=== PATIENT | female | born 1960 | race African-American/Black ===

== ENCOUNTER 2020-10-05 12:20 | Emergency (ER) | payer OTHER ==
[2020-10-05 12:28] VITALS: BP 111/72; PULSE 99; TEMP 97; BMI 37.2
[2020-10-05] MEDS ORDERED: SULFAMETHOXAZOLE/TRIMETHOPRIM 800MG/160MG D.S. TABLET PO ONE (13:14)
[2020-10-05] MEDS ORDERED: SULFAMETHOXAZOLE/TRIMETHOPRIM 800MG/160MG D.S. TABLET ONE (13:19)
== END 2020-10-05 13:21 | disposition home or self-care (01) ==
LOC: JERFT 12:20 → JER 12:20 → JERFT 13:21
PROC: 0X940ZX Drainage of Right Axilla, Open Approach, Diagnostic (ICD-10-PCS; principal; 2020-10-05)
DX: L72.3 Sebaceous cyst (principal)
CPT/HCPCS: 10060; 87070; 87205; 99284-25

== ENCOUNTER 2022-11-07 15:31 | Emergency (ER) | payer OTHER ==
[2022-11-07 16:02] VITALS: BP 110/58; PULSE 88; RESP 18; TEMP 98; BMI 32.8
[2022-11-07 17:25] LABS: BASO % 0.7 % (0-2.0); EOS % 1.1 % (0-4.5); HEMATOCRIT 37.1 % (32.4-45.2); HEMOGLOBIN 12.4 GM/dL (10.7-15.3); LYMPH % 25.6 % (8-40); MCH 29.7 pg (25.7-33.7); MCHC 33.3 g/dl (32.0-36.0); MEAN CELL VOLUME 89.2 fl (80-96); MEAN PLT VOLUME 8.8 fl (7.5-11.1); MONO % 7.9 % (3.8-10.2); NEUT % 64.7 % (42.8-82.8); PLATELET COUNT 272 10^3/uL (134-434); RBC 4.16 M/mm3 (3.60-5.2); RDW 14.7 % (11.6-15.6)
[2022-11-07 17:29] LABS: PROTHROMBIN TIME (PATIENT) 47.4 SEC (9.7-13.0)
[2022-11-07 17:42] LABS: ALBUMIN 3.6 g/dl (3.4-5.0); BLOOD UREA NITROGEN 24.5 mg/dL (7-18)
[2022-11-07 17:45] LABS: CREATININE 1.2 mg/dL (0.55-1.3)
[2022-11-07 17:47] LABS: BILIRUBIN,TOTAL 0.4 mg/dL (0.2-1); TOT PROT 7.5 g/dl (6.4-8.2)
[2022-11-07 18:00] LABS: INR 4.14 (0.83-1.09)
== END 2022-11-07 20:34 | disposition home or self-care (01) ==
LOC: JER 15:31
DX: S40.021A Contusion of right upper arm, initial encounter (principal); Y99.9 Unspecified external cause status
CPT/HCPCS: 36415; 76882-TC-RT-FY; 80053; 85025; 85610; 86850; 86900; 86901; 93005; 93010; 93971; 99285-25

== ENCOUNTER 2023-07-26 12:27 | Emergency (ER) | payer OTHER ==
[2023-07-26 12:35] VITALS: BMI 30.4
[2023-07-26] MEDS ORDERED: methylPREDNISolone NA SUCC 125 MG/2 ML VIAL IVPB ONE (13:25)
[2023-07-26 13:48] VITALS: BP 155/67; PULSE 84; RESP 16; TEMP 98
[2023-07-26] MEDS ORDERED: ALBUTEROL SO4 2.5/IPRATROPIUM 0.5 INH SOL 3 ML VIAL.NEB. NEB ONE (14:04)
[2023-07-26] MEDS ORDERED: methylPREDNISolone NA SUCC 125 MG/2 ML VIAL ONE (14:05)
[2023-07-26] MEDS: ALBUTEROL SO4 2.5/IPRATROPIUM 0.5 INH SOL 3 ML VIAL.NEB. NEB SCH ×4 (14:17→15:03)
[2023-07-26 14:27] LABS: VENOUS O2 SATURATION 86.2 % (70-80); VENOUS PCO2 42.8 mmHg (38-52); VENOUS PH 7.387 (7.310-7.410)
[2023-07-26 14:36] LABS: BASO % 0.2 % (0-2.0); EOS % 1.8 % (0-4.5); HEMATOCRIT 31.7 % (32.4-45.2); MCH 27.4 pg (25.7-33.7); MCHC 31.5 g/dl (32.0-36.0); MEAN CELL VOLUME 87.1 fl (80-96); MEAN PLT VOLUME 8.7 fl (7.5-11.1); PLATELET COUNT 262 10^3/uL (134-434); RBC 3.64 M/mm3 (3.60-5.2); RDW 16.1 % (11.6-15.6); WHITE BLOOD COUNT 10.8 K/mm3 (4.0-10.0)
[2023-07-26 14:42] LABS: INR 1.52 (0.83-1.09); PROTHROMBIN TIME (PATIENT) 17.6 SEC (9.7-13.0)
[2023-07-26 14:44] LABS: ACTIVATED PTT 32.9 SECONDS (25.2-36.5)
[2023-07-26 14:58] LABS: POTASSIUM 3.7 mmol/L (3.5-5.1)
[2023-07-26 15:00] LABS: CALCIUM 8.7 mg/dL (8.5-10.1)
[2023-07-26 15:01] LABS: ALBUMIN 3.3 g/dl (3.4-5.0); BLOOD UREA NITROGEN 6.7 mg/dL (7-18)
[2023-07-26 15:04] LABS: CREATININE 0.9 mg/dL (0.55-1.3)
[2023-07-26 15:05] LABS: BILIRUBIN,TOTAL 0.4 mg/dL (0.2-1); TOT PROT 7.2 g/dl (6.4-8.2)
== END 2023-07-26 15:56 | disposition home or self-care (01) ==
LOC: JER 12:27
PROC: 3E033GC Introduction of Other Therapeutic Substance into Peripheral Vein, Percutaneous Approach (ICD-10-PCS; principal; 2023-07-26)
PROC: 3E0F7GC Introduction of Other Therapeutic Substance into Respiratory Tract, Via Natural or Artificial Opening (ICD-10-PCS; 2023-07-26)
DX: R06.02 Shortness of breath (principal); R09.81 Nasal congestion; R05.9 Cough, unspecified; J45.901 Unspecified asthma with (acute) exacerbation; Z20.822 Contact with and (suspected) exposure to COVID-19
CPT/HCPCS: 0241U-QW; 36415; 71046-TC-FY; 80053; 82803; 85025; 85610; 85730; 93005; 93010; 99285-25

== ENCOUNTER 2024-05-04 19:47 | Emergency (ER) | payer OTHER ==
[2024-05-04 19:59] VITALS: RESP 22; TEMP 98.4; BMI 26.5
[2024-05-04] MEDS ORDERED: methylPREDNISolone NA SUCC 125 MG/2 ML VIAL ONE (20:24)
[2024-05-04] MEDS: methylPREDNISolone NA SUCC 125 MG/2 ML VIAL IM ONE (20:47)
[2024-05-04 20:48] LABS: VENOUS BASE EXCESS 0.9 mmol/L (-2-2); VENOUS O2 SATURATION 66.2 % (70-80); VENOUS PCO2 51.6 mmHg (38-52); VENOUS PH 7.34 (7.310-7.410)
[2024-05-04] MEDS: ALBUTEROL SO4 2.5/IPRATROPIUM 0.5 INH SOL 3 ML VIAL.NEB. NEB SCH (20:48)
[2024-05-04 20:53] LABS: BASO % 0.6 % (0-2.0); EOS % 2.2 % (0-4.5); HEMATOCRIT 30.5 % (32.4-45.2); HEMOGLOBIN 9.3 GM/dL (10.7-15.3); LYMPH % 25.4 % (8-40); MCHC 30.6 g/dl (32.0-36.0); MEAN CELL VOLUME 81.8 fl (80-96); MEAN PLT VOLUME 8.4 fl (7.5-11.1); MONO % 10.4 % (3.8-10.2); NEUT % 61.4 % (42.8-82.8); PLATELET COUNT 269 10^3/uL (134-434); RBC 3.73 M/mm3 (3.60-5.2); WHITE BLOOD COUNT 8.4 K/mm3 (4.0-10.0)
[2024-05-04] MEDS ORDERED: MAGNESIUM SULFATE IN WATER 2 GM/50 ML IVPB IVPB ONE (20:55)
[2024-05-04] MEDS ORDERED: ALBUTEROL SO4 2.5/IPRATROPIUM 0.5 INH SOL 3 ML VIAL.NEB. NEB ONE ×2 (20:55→23:22)
[2024-05-04] MEDS: MAGNESIUM SULF 50% (8.12 MEQ/2 ML-1 GM VIAL) IVPB ONE (21:06)
[2024-05-04 21:21] LABS: ALBUMIN 3.4 g/dl (3.4-5.0); CALCIUM 8.9 mg/dL (8.5-10.1)
[2024-05-04 21:25] LABS: CREATININE 1.1 mg/dL (0.55-1.3)
[2024-05-04 21:26] LABS: BILIRUBIN,TOTAL 0.3 mg/dL (0.2-1); TOT PROT 6.9 g/dl (6.4-8.2)
[2024-05-04 22:25] LABS: HIV INTERPRETATION NEGATIVE (NEGATIVE)
[2024-05-04] MEDS: ALBUTEROL SO4 2.5/IPRATROPIUM 0.5 INH SOL 3 ML VIAL.NEB. NEB ONE (23:25)
[2024-05-05 00:43] VITALS: BP 145/75; PULSE 81
== END 2024-05-05 00:41 | disposition home or self-care (01) ==
LOC: JER 19:47
PROC: 3E0F7GC Introduction of Other Therapeutic Substance into Respiratory Tract, Via Natural or Artificial Opening (ICD-10-PCS; principal; 2024-05-04)
PROC: 3E0F7GC Introduction of Other Therapeutic Substance into Respiratory Tract, Via Natural or Artificial Opening (ICD-10-PCS; 2024-05-04)
PROC: 3E033GC Introduction of Other Therapeutic Substance into Peripheral Vein, Percutaneous Approach (ICD-10-PCS; 2024-05-04)
PROC: 3E023GC Introduction of Other Therapeutic Substance into Muscle, Percutaneous Approach (ICD-10-PCS; 2024-05-04)
DX: R06.02 Shortness of breath (principal); J44.9 Chronic obstructive pulmonary disease, unspecified; J45.901 Unspecified asthma with (acute) exacerbation; F17.210 Nicotine dependence, cigarettes, uncomplicated; Z20.822 Contact with and (suspected) exposure to COVID-19
CPT/HCPCS: 0241U-QW; 36415; 71045-TC-FY; 80053; 82803; 84484; 85025; 86803; 87389; 94640; 96372; 96374; 99284-25

== ENCOUNTER 2024-06-05 19:56 | Emergency (ER) | payer OTHER ==
[2024-06-05 20:08] VITALS: TEMP 98.4; BMI 25.8
[2024-06-05] MEDS ORDERED: MAGNESIUM SULFATE IN WATER 2 GM/50 ML IVPB IVPB ONE (20:44)
[2024-06-05] MEDS ORDERED: ALBUTEROL SO4 2.5/IPRATROPIUM 0.5 INH SOL 3 ML VIAL.NEB. NEB ONE (20:44)
[2024-06-05] MEDS ORDERED: methylPREDNISolone NA SUCC 125 MG/2 ML VIAL ONE (20:44)
[2024-06-05] MEDS: methylPREDNISolone NA SUCC 125 MG/2 ML VIAL IVPB ONE (21:04)
[2024-06-05] MEDS: ALBUTEROL SO4 2.5/IPRATROPIUM 0.5 INH SOL 3 ML VIAL.NEB. NEB ONE (21:04)
[2024-06-05] MEDS: MAGNESIUM SULF 50% (8.12 MEQ/2 ML-1 GM VIAL) IVPB ONE (21:04)
[2024-06-05 21:29] LABS: BASO % 0.8 % (0-2.0); HEMATOCRIT 32.9 % (32.4-45.2); LYMPH % 22.2 % (8-40); MCH 24.3 pg (25.7-33.7); MCHC 30.3 g/dl (32.0-36.0); MEAN CELL VOLUME 80.2 fl (80-96); MEAN PLT VOLUME 8.6 fl (7.5-11.1); MONO % 10.7 % (3.8-10.2); NEUT % 65.3 % (42.8-82.8); PLATELET COUNT 287 10^3/uL (134-434); RDW 17.5 % (11.6-15.6); WHITE BLOOD COUNT 8.6 K/mm3 (4.0-10.0)
[2024-06-05 21:35] LABS: POTASSIUM 4.7 mmol/L (3.5-5.1)
[2024-06-05 21:36] LABS: CALCIUM 9.1 mg/dL (8.5-10.1)
[2024-06-05 21:37] LABS: ALBUMIN 3.4 g/dl (3.4-5.0); BLOOD UREA NITROGEN 13.2 mg/dL (7-18)
[2024-06-05 21:40] LABS: CREATININE 0.9 mg/dL (0.55-1.3)
[2024-06-05 21:42] LABS: BILIRUBIN,TOTAL 0.3 mg/dL (0.2-1); TOT PROT 7.4 g/dl (6.4-8.2)
[2024-06-05 23:22] VITALS: BP 128/76; PULSE 102; RESP 18
== END 2024-06-05 23:24 | disposition home or self-care (01) ==
LOC: JER 19:56
PROC: 3E033GC Introduction of Other Therapeutic Substance into Peripheral Vein, Percutaneous Approach (ICD-10-PCS; principal; 2024-06-05)
PROC: 3E033GC Introduction of Other Therapeutic Substance into Peripheral Vein, Percutaneous Approach (ICD-10-PCS; 2024-06-05)
PROC: 3E0F7GC Introduction of Other Therapeutic Substance into Respiratory Tract, Via Natural or Artificial Opening (ICD-10-PCS; 2024-06-05)
DX: J45.901 Unspecified asthma with (acute) exacerbation (principal); R06.02 Shortness of breath; R05.9 Cough, unspecified
CPT/HCPCS: 36415; 71045-TC-FY; 80053; 85025; 93005; 93010; 99285-25

== ENCOUNTER 2024-06-10 19:37 | Inpatient (IN) | payer OTHER ==
[2024-06-10] MEDS: ALBUTEROL SO4 2.5/IPRATROPIUM 0.5 INH SOL 3 ML VIAL.NEB. NEB SCH (21:00)
[2024-06-10] MEDS ORDERED: ALBUTEROL SO4 2.5/IPRATROPIUM 0.5 INH SOL 3 ML VIAL.NEB. NEB ONE ×2 (21:06→22:01)
[2024-06-10] MEDS ORDERED: methylPREDNISolone NA SUCC 125 MG/2 ML VIAL ONE (21:32)
[2024-06-10 21:33] LABS: VENOUS O2 SATURATION 90.2 % (70-80); VENOUS PH 7.355 (7.310-7.410)
[2024-06-10 21:55] LABS: INR 1.2 (0.83-1.09); PROTHROMBIN TIME (PATIENT) 13.5 SEC (9.7-13.0)
[2024-06-10 21:57] LABS: BASO % 0.4 % (0-2.0); EOS % 0.2 % (0-4.5); HEMOGLOBIN 9.6 GM/dL (10.7-15.3); LYMPH % 48.2 % (8-40); MCH 23.8 pg (25.7-33.7); MCHC 29.7 g/dl (32.0-36.0); MEAN CELL VOLUME 80.1 fl (80-96); MEAN PLT VOLUME 8.8 fl (7.5-11.1); MONO % 3.3 % (3.8-10.2); NEUT % 47.9 % (42.8-82.8); PLATELET COUNT 328 10^3/uL (134-434); RBC 4.02 M/mm3 (3.60-5.2); RDW 17.2 % (11.6-15.6); WHITE BLOOD COUNT 12.6 K/mm3 (4.0-10.0)
[2024-06-10] MEDS: methylPREDNISolone NA SUCC 125 MG/2 ML VIAL IVPB ONE (21:57)
[2024-06-10 21:58] LABS: ACTIVATED PTT 28.5 SECONDS (25.2-36.5)
[2024-06-10 22:23] LABS: CALCIUM 9.2 mg/dL (8.5-10.1)
[2024-06-10 22:24] LABS: ALBUMIN 3.5 g/dl (3.4-5.0); BLOOD UREA NITROGEN 20.3 mg/dL (7-18)
[2024-06-10 22:29] LABS: BILIRUBIN,TOTAL 0.2 mg/dL (0.2-1); TOT PROT 7.1 g/dl (6.4-8.2)
[2024-06-10 22:31] LABS: ANISOCYTOSIS 2+; MACROCYTOSIS 0; TARGET CELLS 2+; TEAR DROP CELLS 1+
[2024-06-10] MEDS: ALBUTEROL SO4 0.083% IH SOL 2.5 MG/3 ML VIAL.NEB. NEB SCH (23:45)
[2024-06-10] MEDS ORDERED: MAGNESIUM SULFATE IN WATER 2 GM/50 ML IVPB IVPB ONE (23:48)
[2024-06-11] MEDS: MAGNESIUM SULFATE IN WATER 2 GM/50 ML IVPB IVPB ONE
[2024-06-11] MEDS ORDERED: ALBUTEROL SO4 2.5/IPRATROPIUM 0.5 INH SOL 3 ML VIAL.NEB. NEB ONE ×3 (01:25→17:49)
[2024-06-11] MEDS: ALBUTEROL SO4 2.5/IPRATROPIUM 0.5 INH SOL 3 ML VIAL.NEB. NEB ONE (01:38)
[2024-06-11] MEDS ORDERED: ALBUTEROL SO4 2.5/IPRATROPIUM 0.5 INH SOL 3 ML VIAL.NEB. NEB PRN (01:42)
[2024-06-11] MEDS ORDERED: PANTOPRAZOLE SODIUM 40 MG/100 ML BAG IVPB ONE ×2 (03:37→09:44)
[2024-06-11] MEDS: PANTOPRAZOLE SODIUM 40 MG VIAL IVPUSH SCH (03:57)
[2024-06-11] MEDS: amLODIPine BESYLATE 10 MG TABLET (FP) PO ONE (03:57)
[2024-06-11] MEDS: D5-1/2NS+10 MEQ KCL - 10 MEQ/1,000 ML INFUS.BAG IV SCH ×2 (03:57→20:06)
[2024-06-11 04:51] LABS: POTASSIUM 3.8 mmol/L (3.5-5.1)
[2024-06-11 04:52] LABS: CALCIUM 9.1 mg/dL (8.5-10.1)
[2024-06-11 04:53] LABS: BLOOD UREA NITROGEN 21.2 mg/dL (7-18)
[2024-06-11 04:56] LABS: CREATININE 1.1 mg/dL (0.55-1.3)
[2024-06-11 05:03] LABS: HEMOGLOBIN 9.5 GM/dL (10.7-15.3); MCHC 29.7 g/dl (32.0-36.0); MEAN CELL VOLUME 80.9 fl (80-96); PLATELET COUNT 338 10^3/uL (134-434); RBC 3.96 M/mm3 (3.60-5.2); RDW 17.4 % (11.6-15.6)
[2024-06-11 06:45] LABS: ANISOCYTOSIS 1+; MACROCYTOSIS 1+; TEAR DROP CELLS 1+
[2024-06-11] MEDS: LIPASE/PROTEASE/AMYLASE 6,000 UNIT CAPSULE PO SCH (09:39)
[2024-06-11] MEDS ORDERED: methylPREDNISolone NA SUCC 40 MG/1 ML VIAL ONE ×2 (09:44→18:26)
[2024-06-11] MEDS ORDERED: CLOPIDOGREL BISULFATE 75 MG TABLET (FP) PO SCH (10:00)
[2024-06-11] MEDS ORDERED: HYDROCHLOROTHIAZIDE 12.5 MG CAPSULE (FP) PO SCH (10:00)
[2024-06-11] MEDS: VALSARTAN 160 MG TABLET PO SCH (10:06)
[2024-06-11] MEDS: methylPREDNISolone NA SUCC 40 MG/1 ML VIAL IVPUSH SCH (10:06)
[2024-06-11] MEDS: IRON SUCROSE INJECTION 300 MG in SODIUM CHLORIDE 250 ML IVPB ONE (10:37)
[2024-06-11] MEDS: INSULIN ASPART SLIDING SCALE (NOVOLOG) 1 VIAL SQ SCH (12:54)
[2024-06-11] MEDS: BUDESONIDE/FORMETEROL FUMARATE 160/4.5 mcg INHALER IH SCH (13:01)
[2024-06-11] MEDS: ALBUTEROL SO4 2.5/IPRATROPIUM 0.5 INH SOL 3 ML VIAL.NEB. NEB SCH (13:23)
[2024-06-11] MEDS ORDERED: AZITHROMYCIN IVPB 500 MG/250 ML BAG IVPB ONE (14:35)
[2024-06-11] MEDS: AZITHROMYCIN IVPB 500 MG/250 ML BAG IVPB SCH (14:43)
[2024-06-11] MEDS: WARFARIN NA 7.5 MG TABLET PO SCH (18:39)
[2024-06-11 22:03] LABS: INR 1.76 (0.83-1.09); PROTHROMBIN TIME (PATIENT) 19.9 SEC (9.7-13.0)
[2024-06-11] MEDS: ATORVASTATIN CA 20 MG TABLET (FP) PO SCH (22:30)
[2024-06-11] MEDS: MONTELUKAST NA 10 MG TABLET PO SCH (22:30)
[2024-06-12 00:34] VITALS: BMI 26.4
[2024-06-12] MEDS: ACETAMINOPHEN 325 MG TABLET (FP) PO PRN (02:04)
[2024-06-12 08:50] LABS: HEMATOCRIT 29.9 % (32.4-45.2); HEMOGLOBIN 8.8 GM/dL (10.7-15.3); MCH 23.6 pg (25.7-33.7); MCHC 29.3 g/dl (32.0-36.0); MEAN CELL VOLUME 80.5 fl (80-96); MEAN PLT VOLUME 9.1 fl (7.5-11.1); PLATELET COUNT 316 10^3/uL (134-434); RBC 3.71 M/mm3 (3.60-5.2); RDW 17.3 % (11.6-15.6); WHITE BLOOD COUNT 19.7 K/mm3 (4.0-10.0)
[2024-06-12 08:56] LABS: POTASSIUM 4.9 mmol/L (3.5-5.1)
[2024-06-12 09:01] LABS: BLOOD UREA NITROGEN 20.5 mg/dL (7-18); CALCIUM 9.6 mg/dL (8.5-10.1)
[2024-06-12 09:05] LABS: CREATININE 0.9 mg/dL (0.55-1.3)
[2024-06-12] MEDS: PANTOPRAZOLE 40 MG TABLET PO SCH (09:24)
[2024-06-12] MEDS: amLODIPine BESYLATE 10 MG TABLET (FP) PO SCH (09:26)
[2024-06-12] MEDS: IRON SUCROSE INJECTION 300 MG in SODIUM CHLORIDE 250 ML IVPB ONE (09:34)
[2024-06-12 09:44] LABS: ANISOCYTOSIS 3+; MACROCYTOSIS 0
[2024-06-12] MEDS: POLYETHYLENE GLYCOL (HEALTHYLAX) 3350 17 GM PACKET PO SCH (12:59)
[2024-06-12 17:21] LABS: INR 3.09 (0.83-1.09); PROTHROMBIN TIME (PATIENT) 33.8 SEC (9.7-13.0)
[2024-06-12] MEDS ORDERED: INSULIN ASPART SLIDING SCALE (NOVOLOG) 1 VIAL SQ ONE (21:38)
[2024-06-12] MEDS: methylPREDNISolone NA SUCC 40 MG/1 ML VIAL IVPUSH SCH (21:43)
[2024-06-12] MEDS ORDERED: DOCUSATE SODIUM 100 MG CAPSULE (FP) PO SCH (22:00)
[2024-06-13] MEDS ORDERED: INSULIN ASPART SLIDING SCALE (NOVOLOG) 1 VIAL SQ SCH (07:30)
[2024-06-13] MEDS ORDERED: IRON SUCROSE INJECTION 100 MG in SODIUM CHLORIDE 95 ML IVPB ONE (07:41)
[2024-06-13 08:22] LABS: POTASSIUM 5.1 mmol/L (3.5-5.1)
[2024-06-13 08:25] LABS: BLOOD UREA NITROGEN 16.8 mg/dL (7-18); CALCIUM 9.2 mg/dL (8.5-10.1)
[2024-06-13 08:31] LABS: CREATININE 0.8 mg/dL (0.55-1.3)
[2024-06-13 08:53] LABS: HEMOGLOBIN 8.9 GM/dL (10.7-15.3); MCH 23.8 pg (25.7-33.7); MCHC 29.8 g/dl (32.0-36.0); MEAN CELL VOLUME 79.8 fl (80-96); PLATELET COUNT 321 10^3/uL (134-434); RBC 3.75 M/mm3 (3.60-5.2); RDW 17.1 % (11.6-15.6); WHITE BLOOD COUNT 19.5 K/mm3 (4.0-10.0)
[2024-06-13] MEDS ORDERED: IRON SUCROSE IVPB ONE (10:00)
[2024-06-13] MEDS ORDERED: SODIUM CHLORIDE IVPB ONE (10:00)
[2024-06-13 10:12] LABS: ANISOCYTOSIS 2+; MACROCYTOSIS 0
[2024-06-13] MEDS: IRON SUCROSE INJECTION 300 MG in SODIUM CHLORIDE 235 ML IVPB ONE (11:00)
[2024-06-13 16:52] LABS: INR 2.01 (0.83-1.09); PROTHROMBIN TIME (PATIENT) 22.7 SEC (9.7-13.0)
[2024-06-14 06:49] LABS: HEMATOCRIT 30.4 % (32.4-45.2); HEMOGLOBIN 8.9 GM/dL (10.7-15.3); MCH 23.7 pg (25.7-33.7); MCHC 29.2 g/dl (32.0-36.0); MEAN CELL VOLUME 81.1 fl (80-96); MEAN PLT VOLUME 9.1 fl (7.5-11.1); PLATELET COUNT 293 10^3/uL (134-434); RBC 3.75 M/mm3 (3.60-5.2); RDW 17.2 % (11.6-15.6); WHITE BLOOD COUNT 28.5 K/mm3 (4.0-10.0)
[2024-06-14 07:08] LABS: POTASSIUM 4.9 mmol/L (3.5-5.1)
[2024-06-14 07:09] LABS: CALCIUM 9.3 mg/dL (8.5-10.1)
[2024-06-14 07:10] LABS: BLOOD UREA NITROGEN 14.4 mg/dL (7-18)
[2024-06-14 07:13] LABS: CREATININE 0.8 mg/dL (0.55-1.3)
[2024-06-14 09:08] LABS: ANISOCYTOSIS 0; MACROCYTOSIS 0
[2024-06-14] MEDS: methylPREDNISolone NA SUCC 40 MG/1 ML VIAL IVPUSH SCH (10:09)
[2024-06-14] MEDS: AZITHROMYCIN 500 MG TABLET PO SCH (10:45)
[2024-06-14 17:38] LABS: INR 2.21 (0.83-1.09); PROTHROMBIN TIME (PATIENT) 24.4 SEC (9.7-13.0)
[2024-06-15 07:32] LABS: HEMATOCRIT 30.7 % (32.4-45.2); HEMOGLOBIN 9.2 GM/dL (10.7-15.3); MCH 23.9 pg (25.7-33.7); MCHC 29.9 g/dl (32.0-36.0); MEAN PLT VOLUME 9.1 fl (7.5-11.1); PLATELET COUNT 292 10^3/uL (134-434); RBC 3.83 M/mm3 (3.60-5.2); RDW 17.7 % (11.6-15.6); WHITE BLOOD COUNT 25.1 K/mm3 (4.0-10.0)
[2024-06-15 08:21] LABS: ANISOCYTOSIS 3+; MACROCYTOSIS 0
[2024-06-15] MEDS: predniSONE 20 MG TABLET (UD) PO SCH (12:30)
[2024-06-15 18:46] LABS: INR 2.45 (0.83-1.09); PROTHROMBIN TIME (PATIENT) 27.5 SEC (9.7-13.0)
[2024-06-16 08:20] LABS: HEMATOCRIT 31.7 % (32.4-45.2); HEMOGLOBIN 9.2 GM/dL (10.7-15.3); MCH 23.7 pg (25.7-33.7); MCHC 29.2 g/dl (32.0-36.0); MEAN CELL VOLUME 81.1 fl (80-96); MEAN PLT VOLUME 9.5 fl (7.5-11.1); PLATELET COUNT 291 10^3/uL (134-434); RBC 3.91 M/mm3 (3.60-5.2); RDW 17.4 % (11.6-15.6); WHITE BLOOD COUNT 24.8 K/mm3 (4.0-10.0)
[2024-06-16 09:03] LABS: ANISOCYTOSIS 2+; MACROCYTOSIS 0; TARGET CELLS 1+
[2024-06-16 14:23] VITALS: BP 146/65; PULSE 102; RESP 22; TEMP 98.6
== END 2024-06-16 15:00 | disposition home or self-care (01) | DRG 190 ==
LOC: JER 19:37 → JERBED 06-11 01:33 → J4W 06-11 20:40
PROVIDERS: ADMIT Internal Medicine; ATTEND Internal Medicine
DX: J44.1 Chronic obstructive pulmonary disease with (acute) exacerbation (principal); J96.01 Acute respiratory failure with hypoxia; J96.02 Acute respiratory failure with hypercapnia; J45.901 Unspecified asthma with (acute) exacerbation; J98.11 Atelectasis; D50.9 Iron deficiency anemia, unspecified; F17.210 Nicotine dependence, cigarettes, uncomplicated; I73.9 Peripheral vascular disease, unspecified; K44.9 Diaphragmatic hernia without obstruction or gangrene; M62.81 Muscle weakness (generalized); D72.829 Elevated white blood cell count, unspecified; I10 Essential (primary) hypertension; E78.5 Hyperlipidemia, unspecified; I25.10 Atherosclerotic heart disease of native coronary artery without angina pectoris; M48.00 Spinal stenosis, site unspecified; R26.81 Unsteadiness on feet; Z86.718 Personal history of other venous thrombosis and embolism
CPT/HCPCS: 0241U-QW; 36415; 71045-TC-FY; 71250-TC; 74176-TC; 80048; 80053; 82272; 82728; 82803; 82962; 83540; 83550; 84484; 85025; 85027; 85379; 85610; 85730; 93005; 93010; 94010; 94640; 94660; 94761; 99285-25; J1756